=== PATIENT | female | born 1940 | race Hispanic/Latino ===

== ENCOUNTER 2018-03-08 08:30 | Day surgery (SDC) | payer MEDICARE, MEDICAID ==
[2018-03-08 09:02] VITALS: BMI 30.5
[2018-03-08] MEDS ORDERED: Lactated Ringer's 1,000 ML IV ONE (09:40)
--- NOTE | 2018-03-08 10:11 | CP.PCM.HP ---
History of Present Illness - History of Present Illness History of Present Illness: 78-year-old female with history of postmenopausal bleeding. Patient had ultrasound which showed thickened endometrium. Patient for D&C, possible hysteroscopy. Patient also with a history of pelvic organ prolapse currently being treated with a pessary. Discussed with patient the risks, benefits, alternatives of procedure and patient consented for D&C possible hysteroscopy. All patient questions answered. Present on Admission - Present on Admission Any Indicators Present on Admission: No History of DVT/PE: No History of Uncontrolled Diabetes: No Urinary Catheter: No Decubitus Ulcer Present: No Past Patient History - Past Medical History & Family History Past Medical History?: Yes - Past Social History Smoking Status: Never Smoked - CARDIAC Hx Cardiac Disorders: Yes Hx Hypercholesterolemia: Yes Hx Hypertension: Yes Hx Pacemaker: No Other/Comment: VARICOSITIES - PULMONARY Hx Respiratory Disorders: No - NEUROLOGICAL Hx Neurological Disorder: No Hx Paralysis: No - HEENT Hx HEENT Problems: No - RENAL Hx Chronic Kidney Disease: No - ENDOCRINE/METABOLIC Hx Endocrine Disorders: No - HEMATOLOGICAL/ONCOLOGICAL Hx Blood Disorders: Yes Hx Blood Transfusions: No Hx Cancer: Yes (Breast R) Hx Chemotherapy: Yes Other/Comment: right breast lumpectomy - INTEGUMENTARY Hx Dermatological Problems: No Other/Comment: 12-04-16 RIGHT UPPER ARM WITH CELLULITIS-REDNESS,WARMTH,DENIES BARRETT ,REDNESS RADIATIED TO RIUGHT CHEST WALL. HAS H/O OF IT BEFORE TOO. - MUSCULOSKELETAL/RHEUMATOLOGICAL Hx Musculoskeletal Disorders: Yes Hx Arthritis: Yes Hx Falls: No Hx Osteoporosis: Yes - GASTROINTESTINAL Hx Gastrointestinal Disorders: No Hx Gall Bladder Disease: Yes (CHOLECYSTECTOMY) - GENITOURINARY/GYNECOLOGICAL Hx Genitourinary Disorders: No - PSYCHIATRIC Hx Anxiety: Yes Hx Depression: No Hx Emotional Abuse: No Hx Physical Abuse: No Hx Substance Use: No - SURGICAL HISTORY Hx Surgeries: Yes (/rt breast lumpectomy 15 yrs ago) - ANESTHESIA Hx Anesthesia: Yes Hx Anesthesia Reactions: No Hx Malignant Hyperthermia: No Has any member of the family had a problem w/ anesthesia?: No Meds Allergies/Adverse Reactions: Allergies Allergy/AdvReac Type Severity Reaction Status Date / Time Penicillins Allergy Severe RASH Verified 03/08/18 09:01 Physical Exam - Constitutional Appears: Well, No Acute Distress - Head Exam Head Exam: ATRAUMATIC - Eye Exam Eye Exam: Normal appearance, PERRL - ENT Exam ENT Exam: Mucous Membranes Moist - Neck Exam Neck exam: Positive for: Full Rom - Respiratory Exam Respiratory Exam: Clear to Auscultation Bilateral - Cardiovascular Exam Cardiovascular Exam: REGULAR RHYTHM - GI/Abdominal Exam GI & Abdominal Exam: Soft. absent: Distended, Tenderness Results - Vital Signs Recent Vital Signs: Last Vital Signs Temp 98.7 F 03/05/18 11:00 Pulse 61 03/08/18 09:30 Resp 20 03/05/18 11:00 BP 163/71 H 03/05/18 11:00 Pulse Ox 95 03/05/18 11:00 Assessment & Plan - Assessment and Plan (Free Text) Assessment: Postmenopausal bleeding with thickened endometrium Plan: Patient consented for D&C, possible hysteroscopy. Discussed the risks, benefits , alternatives of procedure and all patient questions answered. - Date & Time Date: 03/08/18 Time: 10:13
[2018-03-08] MEDS ORDERED: Propofol 10 mg/ml Inj (20 ML) ONE (10:12)
[2018-03-08 11:12] VITALS: RESP 18
[2018-03-08] MEDS ORDERED: Lactated Ringer's 1,000 ML IV SCH (11:15)
[2018-03-08 14:02] VITALS: TEMP 98.2
[2018-03-08 14:31] VITALS: BP 140/65; PULSE 58; O2SAT 96
--- NOTE | 2018-03-09 08:27 | PCM.SURG1 ---
Surgeon's Initial Post Op Note - Surgeon's Notes Surgeon: Oleg Stock Checkerer: N/A Type of Anesthesia: General LMA Pre-Operative Diagnosis: Postmenopausal bleeding, thickened endometrium Operative Findings: Pelvic organ prolapse, otherwise normal appearing anatomy Post-Operative Diagnosis: Same Operation Performed: D&C Specimen/Specimens Removed: EMC Estimated Blood Loss: EBL {In ML}: 0 (minimal) Blood Products Given: N/A Post-Op Condition: Good Date of Surgery/Procedure: 03/08/18 Time of Surgery/Procedure: 11:00
--- NOTE | 2018-03-09 08:33 | CP.PCM.DIS ---
Provider - Provider Attending physician: Wong Dejesus MD Primary care physician: Jairon Hill MD Time Spent in preparation of Discharge (in minutes): 10 Diagnosis - Discharge Diagnosis (1) Postmenopausal bleeding Status: Acute Discharge Exam - Head Exam Head Exam: ATRAUMATIC Discharge Plan - Follow Up Plan Condition: STABLE Disposition: HOME/ ROUTINE Referrals: Jairon Hill MD [Primary Care Provider] -
--- NOTE | 2018-03-09 20:08 | OP ---
PROCEDURE DATE: 03/08/2018 PREOPERATIVE DIAGNOSIS: Post menopausal bleeding, thickened endometrium. POSTOPERATIVE DIAGNOSIS: Post menopausal bleeding, thickened endometrium. OPERATION PERFORMED: Dilation and curettage. OPERATIVE FINDINGS: Pelvic organ prolapse, stenotic cervix, otherwise normal appearing anatomy. SURGEON: Wong Dejesus MD. TYPE OF ANESTHESIA: General. ANESTHESIA ADMINISTERED BY: Byron Goldstein MD. ESTIMATED BLOOD LOSS: Minimal. FLUIDS: 300 mL Lactated Ringers. DESCRIPTION OF PROCEDURE: The patient was taken to the operating room where general anesthesia was found to be adequate. The patient was prepped and draped in normal sterile fashion in dorsal lithotomy position. A weighted speculum was placed at the posterior aspect of the vagina. A Graham retractor was placed at the anterior cervix of the vagina. Vaginal pessary was removed. The cervix was grasped at the anterior surface with a single tooth tenaculum. The cervix was dilated with Falk dilators to a size of 11 Finnish. A curette was placed through the cervix into the uterine cavity and endometrial sample was removed. Tenaculum was removed under direct visualization. Small amount of anterior surface of the cervix was found to be bleeding. This was treated with electrocautery. Area was found to be hemostatic following electrocautery treatment. All instruments were removed from the patient. The patient tolerated the procedure well. All sponge count, lap count, and needle count were correct x2. There were no complications. The patient was taken to the recovery room in awake, and stable condition. Wong Dejesus MD
== END 2018-03-08 14:35 | disposition home or self-care (01) ==
LOC: H.OPSURG 08:30
PROVIDERS: ATTEND Obstetrics & Gynecology
DX: N95.0 Postmenopausal bleeding (principal); N81.89 Other female genital prolapse; N88.2 Stricture and stenosis of cervix uteri; R93.8 Abnormal findings on diagnostic imaging of other specified body structures; E78.00 Pure hypercholesterolemia, unspecified; F41.9 Anxiety disorder, unspecified; I10 Essential (primary) hypertension; Z88.0 Allergy status to penicillin
CPT/HCPCS: 58120; 88305; J1885; J2001; J2704; J3010; J7030; J7120